=== PATIENT | male | born 1975 | race Caucasian/White ===

== ENCOUNTER 2023-09-30 11:54 | Day surgery (SDC) | payer BC ==
[2023-09-26 11:59] VITALS: BMI 29.0
[2023-09-30] MEDS: LACTATED RINGERS 1,000 ML IV SCH (12:05)
[2023-09-30] MEDS ORDERED: PROPOFOL 10 MG/ML 20 ML VIAL IV ONE (12:27)
[2023-09-30] MEDS ORDERED: LIDOCAINE 1% INJ 10MG/ML (20 ML MDV) ONE (12:27)
--- NOTE | 2023-09-30 12:32 | P.GSHP ---
History of Present Illness H&P Date: 09/30/23 Chief Complaint: Colon cancer screening 48-year-old male here for colonoscopy. He has not had one previously. No bowel complaints. No family history of colon cancer. Past Medical History Past Medical History: Hyperlipidemia History of Any Multi-Drug Resistant Organisms: None Reported Past Surgical History: No Surgical Hx Reported Past Anesthesia/Blood Transfusion Reactions: Family History of Problems w/ Anesthesia Additional Past Anesthesia/Blood Transfusion Reaction / Comment(s): Has never had anesthesia, states when his father has anesthesia, it takes him longer than normal to wake up. Past Psychological History: No Psychological Hx Reported Smoking Status: Current some day smoker Past Alcohol Use History: Rare Additional Past Alcohol Use History / Comment(s): Smokes 1 PPD. Past Drug Use History: None Reported - Past Family History Mother Family Medical History: No Reported History Father Family Medical History: Cancer Additional Family Medical History / Comment(s): skin Medications and Allergies Home Medications Medication Instructions Recorded Confirmed Type Multivitamins, Thera [Multivitamin 1 tab PO DAILY 09/26/23 09/26/23 History (formulary)] Rosuvastatin [Crestor] 5 mg PO DAILY 09/26/23 09/30/23 History Turmeric Root Extract [Turmeric] 500 mg PO DAILY 09/26/23 09/26/23 History Allergies Allergy/AdvReac Type Severity Reaction Status Date / Time No Known Allergies Allergy Verified 09/26/23 11:26 Surgical - Exam Vital Signs Temp Pulse Resp BP Pulse Ox 97.4 F L 71 18 132/72 96 09/30/23 12:13 09/30/23 12:13 09/30/23 12:13 09/30/23 12:13 09/30/23 12:13 Physical exam: General: Well-developed, well-nourished HEENT: Normocephalic, sclerae nonicteric Abdomen: Nontender, nondistended Extremities: No edema Neuro: Alert and oriented Assessment and Plan (1) Colon cancer screening Narrative/Plan: Will proceed with colonoscopy at this time. Current Visit: Yes Status: Acute Code(s): Z12.11 - ENCOUNTER FOR SCREENING FOR MALIGNANT NEOPLASM OF COLON SNOMED Code(s): 343950158
[2023-09-30 12:35] VITALS: TEMP 97.4
--- NOTE | 2023-09-30 12:41 | P.PCN ---
Date of Procedure: 09/30/23 Procedure(s) Performed: PREOPERATIVE DIAGNOSIS: Colon cancer screening POSTOPERATIVE DIAGNOSIS: Normal exam PROCEDURE: Colonoscopy ANESTHESIA: MAC SURGEON: Nirav Darnell M.D. SPECIMENS: None ENDOSCOPIC PROCEDURE: The patient was placed on the endoscopy table in the left decubitus position. The Olympus colonoscope was inserted into the anus and passed under direct visualization to the base of the cecum. The appendiceal orifice was visualized. From that point the scope was slowly withdrawn inspecti ng all surfaces carefully. There were no neoplastic inflammatory or polypoid lesions throughout the cecum, ascending, transverse, descending, sigmoid and rectum. There was no visible diverticulosis noted. Digital rectal examination was normal. The patient was taken to the recovery room in stable condition per anesthesia guidelines. RECOMMENDATIONS: Resume diet. Repeat colonoscopy 10 years.
[2023-09-30 13:18] VITALS: BP 131/69; PULSE 76; RESP 16
== END 2023-09-30 13:18 | disposition home or self-care (01) ==
LOC: ORWHC2ENDO 11:54
PROVIDERS: ATTEND Surgery
DX: Z12.11 Encounter for screening for malignant neoplasm of colon (principal); K92.2 Gastrointestinal hemorrhage, unspecified; E78.5 Hyperlipidemia, unspecified; F10.90 Alcohol use, unspecified, uncomplicated; F17.210 Nicotine dependence, cigarettes, uncomplicated; Z79.899 Other long term (current) drug therapy
CPT/HCPCS: 45378; J2001; J2704